=== PATIENT | male | born 1955 | race Caucasian/White ===

== ENCOUNTER 2019-10-14 20:40 | Inpatient (IN) | payer BC ==
[2019-10-14] MEDS ORDERED: DICYCLOMINE HCL 10 MG CAPSULE PO ONE (22:27)
--- NOTE | 2019-10-14 22:27 | PDOC ---
History of Present Illness - General History Source: Patient Exam Limitations: No Limitations - History of Present Illness Initial Comments: 10/14/19 22:21 HPI: 64 yo M pmh HTN, HLD, cardiac stent x1, presenting POD 2 following colonoscopy / endoscopy with diffuse sharp abdominal pain. Patient did routine night-before prep and underwent a preoperative colonoscopy and endoscopy on Tuesday10/12/2019 at 11AM, he went home and ate a meal at 2PM. He reports feeling fine until yesterday 10/13/19 at 8PM when he developed sharp pains across his abdomen. He reports initially belching and passing flatus but that was reduced when pain began. Today he tried Pepto Bismol which did not provide relief, and has been avoiding food due to the pains - denies fevers, chills, nausea, vomiting (self induced once), chest pain, shortness of breath. <Deo Carr - Last Filed: 10/14/19 23:58> <Pilar Cuellar - Last Filed: 10/15/19 02:43> - General Chief Complaint: Pain, Acute Stated Complaint: ABDOMIMAL PAIN Past History - Travel History Traveled outside of the country in the last 30 days: No Close contact w/someone who was outside of country & ill: No - Medical History Cardiac Disorders: Yes (stent) COPD: No HTN: Yes - Immunization History Immunization Up to Date: No - Psycho-Social/Smoking History Smoking History: Never smoked Have you smoked in the past 12 months: No - Substance Abuse Hx (Audit-C & DAST Scrn) How often the patient has a drink containing alcohol: Never Score: In Men: 4 or > Positive; In Women: 3 or > Positive: 0 Screen Result (Pos requires Nsg. Audit-10AR): Negative In the last yr the pt used illegal drug/Rx for NonMed reason: No Score: Yes response is considered Positive: 0 Screen Result (Positive result requires Nsg. DAST-10): Negative <Deo Carr - Last Filed: 10/14/19 23:58> <Pilar Cuellar - Last Filed: 10/15/19 02:43> - Medical History Allergies/Adverse Reactions: Allergies Allergy/AdvReac Type Severity Reaction Status Date / Time No Known Allergies Allergy Verified 05/16/19 09:24 Home Medications: Ambulatory Orders Albuterol Sulfate [Albuterol Sulfate Hfa] 8.5 gm IH PRN PRN 05/16/19 Aspirin [Aspirin EC] 81 mg PO DAILY 05/16/19 Chlorthalidone 50 mg PO DAILY 05/16/19 Fluticasone/Vilanterol [Breo Ellipta 100-25 Mcg INH] 1 each IH PRN PRN 05/16/19 Isosorbide Mononitrate [Imdur -] 30 mg PO DAILY #30 tab.sr.24h 05/16/19 Lisinopril [Zestril] 2.5 mg PO DAILY 05/16/19 Omeprazole 20 mg PO DAILY 05/16/19 Potassium Chloride [Klor-Con M10] 10 meq PO DAILY 05/16/19 Simvastatin [Zocor] 20 mg PO DAILY 05/16/19 Review of Systems - Review of Systems Able to Perform ROS?: Yes Is the patient limited Serbian proficient: Yes Constitutional: No: Chills, Fever, Weakness HEENTM: No: Recent change in vision, Hearing Loss, Throat Pain Respiratory: No: Cough, Shortness of Breath Cardiac (ROS): No: Chest Pain, Irregular Heart Rate, Lightheadedness, Palpitations, Syncope, Chest Tightness ABD/GI: No: Constipated, Diarrhea, Nausea, Vomiting : No: Burning, Dysuria, Frequency Musculoskeletal: No: Muscle Pain, Muscle Weakness, Neck Pain Integumentary: No: Bruising, Pruritus, Rash Neurological: No: Headache, Numbness, Tingling, Weakness Psychiatric: No: Stressors, Change in Appetite Endocrine: No: Increased Thirst, Increased Urine, Change in Weight Hematologic/Lymphatic: No: Anemia, Blood Clots, Easy Bleeding All Other Systems: Reviewed and Negative <Deo Carr - Last Filed: 10/14/19 23:58> *Physical Exam - Vital Signs Last Vital Signs Temp Pulse Resp BP Pulse Ox 97.8 F 74 19 175/100 H 96 10/14/19 20:54 10/14/19 20:54 10/14/19 20:54 10/14/19 20:54 10/14/19 20:54 - Physical Exam 10/14/19 22:28 Vitals reviewed, AF, hypertensive GEN: Well appearing, appears stated age, NAD, comfortable. AAOx3. HEENT: NCAT, EOMI, PERRL. Sclera anicteric, noninjected. No facial asymmetry. Moist mucous membranes. Normal voice. Trachea midline. CV: RRR, S1/S2, no murmurs / rubs / gallops appreciated. LUNG: CTABL, normal work of breathing. No wheezes, rales, rhonchi. No cough. Speaking full sentences. GI: Soft, NTND, +BS, no guarding, no rebound. No masses. EXTREMITIES: 2+ distal pulses. No clubbing / cyanosis / edema. No gross deformity in any extremity. SKIN: Warm, dry, no rashes appreciated, non-jaundiced. PSYCH: Normal mood and affect. Cooperative and appropriate. NEURO: CN grossly intact. Moving all extremities well. Normal strength and sensation grossly. <Deo Carr - Last Filed: 10/14/19 23:58> - Vital Signs Last Vital Signs Temp Pulse Resp BP Pulse Ox 97.8 F 69 20 162/84 98 10/14/19 20:54 10/15/19 00:25 10/15/19 00:25 10/15/19 00:25 10/15/19 00:25 <Pilar Cuellar - Last Filed: 10/15/19 02:43> ED Treatment Course - LABORATORY CBC & Chemistry Diagram: 10/14/19 23:27 10/14/19 23:27 <Deo Carr - Last Filed: 10/14/19 23:58> - LABORATORY CBC & Chemistry Diagram: 10/14/19 23:27 10/14/19 23:27 - ADDITIONAL ORDERS Additional order review: Laboratory Results 10/14/19 10/14/19 23:27 23:27 PT with INR 14.00 H INR 1.18 H PTT (Actin FS) 30.0 Sodium 136 Potassium 3.3 L Chloride 100 Carbon Dioxide 25 Anion Gap 11 BUN 21.9 H Creatinine 0.9 Est GFR (CKD-EPI)AfAm 104.98 Est GFR (CKD-EPI)NonAf 90.58 Random Glucose 146 H Calcium 9.0 Total Bilirubin 1.1 H AST 13 L ALT 24 Alkaline Phosphatase 78 Total Protein 8.1 Albumin 3.8 Lipase 60 L 10/14/19 23:27 RBC 5.10 MCV 87.9 MCHC 33.2 RDW 14.8 D MPV 9.5 Neutrophils % 87.7 H D Lymphocytes % 4.4 L D Monocytes % 7.5 Eosinophils % 0.0 D Basophils % 0.4 - Medications Given in the ED: ED Medications Discontinued Medications Generic Name Dose Route Start Last Admin Trade Name Sonali PRN Reason Stop Dose Admin Acetaminophen 1,000 mg 10/14/19 23:02 10/14/19 23:42 Ofirmev Injection - IVPB 10/14/19 23:03 1,000 mg ONCE ONE Administration Dicyclomine HCl 10 mg 10/14/19 22:27 10/14/19 22:54 Bentyl - PO 10/14/19 22:28 10 mg ONCE ONE Administration Fentanyl 50 mcg 10/15/19 01:14 10/15/19 01:30 Sublimaze Injection - IVPUSH 10/15/19 01:15 50 mcg ONCE ONE Administration Sodium Chloride 1,000 ml 10/14/19 23:03 10/14/19 23:43 Normal Saline - IV 10/14/19 23:04 1,000 ml ONCE ONE Administration <Pilar Cuellar - Last Filed: 10/15/19 02:43> Medical Decision Making - Medical Decision Making 10/14/19 22:30 64 yo M pmh HTN, cardiac stent x1, presenting POD 2 following preop clearance colonoscopy / endoscopy with diffuse sharp abdominal pain. History notable for 1 day fine post-procedure, then 1 day of symptoms, sharp pains moving around the abdomen, no associated symptoms. Exam notable for uncomfortable but non-tender to palpation, hypertension without fever or tachycardia. Together concerning for gas pains, low concern for perforation but will obtain abdominal plain film to r/o free air under the diaphragm, bentyl and PO challenge. Follow up with Dr. Mohr. 10/14/19 23:03 On reassessment following xray patient abdomen diffusely tender to palpation. Additional workup discussed with patient who agrees to stay for blood work and CT of his abdomen - CBC, CMP, Coags, Lipase - CTAP with contrast - 1g Ofirmev - 1 L NS 10/14/19 23:52 - Patient endorsed to overnight resident Dr. Burgos who will f/u labs, CTAP, reassess and disposition appropriately Dispo: Pending additional workup <Deo Carr - Last Filed: 10/14/19 23:58> Discharge - Discharge Information Problems reviewed: Yes <Deo Carr - Last Filed: 10/14/19 23:58> <Pilar Cuellar - Last Filed: 10/15/19 02:43> - Discharge Information Clinical Impression/Diagnosis: RUQ pain, Gallbladder dilatation Condition: Stable
[2019-10-14] MEDS ORDERED: ACETAMINOPHEN 1000 MG/100 ML VIAL (NON FORMULARY) IVPB ONE (23:02)
[2019-10-14] MEDS ORDERED: SODIUM CHLORIDE 0.9% 500 ML INFUS.BAG IV ONE (23:03)
--- NOTE | 2019-10-14 23:07 | PDOC ---
Documentation entered by Maria Guadalupe Fernandez SCRIBE, acting as scribe for Pilar Cuellar MD. Pilar Cuellar MD: This documentation has been prepared by the morroeRebecca Sydney, SCRIBE, under my direction and personally reviewed by me in its entirety. I confirm that the documentation accurately reflects all work, treatment, procedures, and medical decision making performed by me. Attending Attestation - Resident Resident Name: BrunoDeo - ED Attending Attestation I have performed the following: I have examined & evaluated the patient, The case was reviewed & discussed with the resident, I agree w/resident's findings & plan, Exceptions are as noted - HPI HPI: 10/14/19 22:43 64 yo HTN, cardiac stent s/p colonoscopy 2 days ago. was able to eat following colonoscopy, but then developed pain last night around 8 pm. took peptobismol. no relief. today has nausea, no vomiting. tried to induce vomiting to relieve his sxs. has not eaten today due to pain. not having bm. Patient endorses belching and passing gas prior to the onset of pain. no f/c no other mod factors. colonoscopy was a pre op workup for gastric bypass surgery. GI dr dhillon. Denies fever, chills, headache, shortness of breath, nausea, diarrhea, or urinary changes. Allergies: NKDA PCP: Dr. Lizandro Dubois 10/14/19 23:01 - Physicial Exam PE: 10/14/19 23:04 awake alert lungs clear bilat heart rrr no mr abd soft distended, ruq epigastric ttp. no rebound no guarding. no cva tenderness. skin warm and dry. alert oriented x 3. - Medical Decision Making 10/14/19 23:05 64 yo male s/p colonoscopy [address] dhillon, now with nausea, abd pain. ttp ruq epigastrum differential perforation, gas pain.cholelllllithiasis, cholecystitis. plan ct a/p labs zofran. ivf. 10/15/19 02:[address] with cholecystitis. labs noted elevated wb 15. given zosyn. us with sludge, distension, pt with tenderness ruq. d/w lizandro dubois for admission. will put consult in for dr mayes 10/15/19 02:58 Heart Score/ECG Review #1 General ECG Interpretation: Sinus Rhythm, Normal Rate (71), Normal Intervals, No acute ischemic changes Discharge - Discharge Information Problems reviewed: Yes Clinical Impression/Diagnosis: RUQ pain, Gallbladder dilatation, Cholecystitis Condition: Stable - Follow up/Referral - Patient Discharge Instructions - Post Discharge Activity
[2019-10-14] MEDS ORDERED: ACETAMINOPHEN INJECTION 100 ML IVPB ONE (23:30)
[2019-10-14 23:52] LABS: INR 1.18 (0.83-1.09)
[2019-10-14 23:53] LABS: BASO % 0.4 % (0-2.0); HEMATOCRIT 44.8 % (35.4-49); HEMOGLOBIN 14.9 GM/dL (11.7-16.9); LYMPH % 4.4 % (8-40); MCH 29.1 pg (25.7-33.7); MCHC 33.2 g/dl (32.0-35.9); MEAN CELL VOLUME 87.9 fl (80-96); MEAN PLT VOLUME 9.5 fl (7.5-11.1); MONO % 7.5 % (3.8-10.2); NEUT % 87.7 % (42.8-82.8); PLATELET COUNT 302 K/MM3 (134-434); RDW 14.8 % (11.9-15.9); WHITE BLOOD COUNT 15.9 K/mm3 (4.0-10.0)
--- NOTE | 2019-10-14 23:57 | PDOC ---
*Physical Exam - Vital Signs Last Vital Signs Temp Pulse Resp BP Pulse Ox 97.8 F 74 19 175/100 H 96 10/14/19 20:54 10/14/19 20:54 10/14/19 20:54 10/14/19 20:54 10/14/19 20:54 ED Treatment Course - LABORATORY CBC & Chemistry Diagram: 10/14/19 23:27 10/14/19 23:27 - ADDITIONAL ORDERS Additional order review: Laboratory Results 10/14/19 23:27 PT with INR 14.00 H INR 1.18 H PTT (Actin FS) 30.0 - RADIOLOGY Radiology Studies Ordered: Category Date Time Status ABDOMEN FLAT & UPRIGHT [RAD] Stat Radiology 10/14/19 22:14 Taken Radiograph Interpretation: CTAP: THIS IS A PRELIMINARY REPORT DATE OF SERVICE: 2019-10-15 00:26:48 IMAGES: [id number] EXAM: ABDOMEN \T\ PELVIS CT WITH CONTR HISTORY: Diffuse abdominal pain COMPARISON: None. FINDINGS: Lung bases are clear. The visualized cardiac chambers are normal size and configuration. Gallbladder distention with pericholecystic edema likely represents acute cholecystitis. No biliary duct dilation. Normal liver, pancreas, spleen, adrenal glands and kidneys. The stomach and abdominal small and large bowel are normal. There is no aortic aneurysm. There is no significant retroperitoneal lymphadenopathy. The pelvic small and large bowel are normal. There is no evidence of appendicitis, although the appendix is not clearly visualized. The urinary bladder and prostate gland are normal. No pelvic free fluid is identified. There is no significant pelvic lymphadenopathy. Small fat-containing bilateral IMPRESSION: Probable acute cholecystitis, which can be confirmed with ultrasound as clinically indicated. One or more of the following dose reduction techniques were used: automated exposure control, adjustment of the mA and/or kV according to patient size, use of iterative reconstructive technique. THIS DOCUMENT HAS BEEN ELECTRONICALLY SIGNED Jerad Velarde MD 10/15/2019 00:58 EST RUQ U/S: THIS IS A PRELIMINARY REPORT DATE OF SERVICE: 2019-10-15 01:28:32 IMAGES: [id number] EXAM: ABDOMEN US -LIMITED , right upper quadrant HISTORY: Rule out cholecystitis COMPARISON: None. FINDINGS: The liver is at, without mass or biliary duct dilation. The gallbladder is distended and contains sludge without secondary findings of cholecystitis. The CBD is mildly dilated and measures8 millimeters in diameter. Right kidney measures 10.1centimeters in length and is unremarkable. The visualized aorta and IVC are normal. Pancreas is obscured. IMPRESSION: Fatty liver. Gallbladder sludge without secondary signs of cholecystitis THIS DOCUMENT HAS BEEN ELECTRONICALLY SIGNED Jerad Velarde MD 10/15/2019 02:09 EST - Medications Given in the ED: ED Medications Discontinued Medications Generic Name Dose Route Start Last Admin Trade Name Sonali PRN Reason Stop Dose Admin Acetaminophen 1,000 mg 10/14/19 23:02 10/14/19 23:42 Ofirmev Injection - IVPB 10/14/19 23:03 1,000 mg ONCE ONE Administration Dicyclomine HCl 10 mg 10/14/19 22:27 10/14/19 22:54 Bentyl - PO 10/14/19 22:28 10 mg ONCE ONE Administration Sodium Chloride 1,000 ml 10/14/19 23:03 10/14/19 23:43 Normal Saline - IV 10/14/19 23:04 1,000 ml ONCE ONE Administration Medical Decision Making - Medical Decision Making Received sign out from resident Dr. Carr. In short, pt is a 64 y/o male presenting with diffuse abdominal discomfort, belching, and flatus two days s/p colonoscopy. Plain films of the abdomen are unremarkable for free air per ED Wet read. Will f/u pending labs and CTAP. CTAP revealed gallbladder distention with pericholecystic edema likely representing acute cholecystitis. Will further evaluate with RUQ U/S. RUQ U/S revealed gallbladder distention and contained sludge without secondary findings of cholecystitis. Ordered Zosyn for abx coverage given pain, pericholecystic fluid, and leukocytosis with left shift. Will place the pt on observation for further abdominal exam and likely general surgery evaluation. 15 Oct 2019 02:30 AM Telephone discussion with Dr. Lizandro Dubois, admitting attending. Verbally appraised of the pts HPI, ED course, and current plan of management. Requested Dr. Jaleel Narvaez consult for general surgery; request placed in [facility]. Accepted pt to his service on med/surg. Discussed plan for observation and further evaluation in the morning. Pt expressed verbal understanding and agreement with plan. All questions answered. Damian Burgos M.D., PGY3 Emergency Medicine Resident Discharge - Discharge Information Problems reviewed: Yes Clinical Impression/Diagnosis: RUQ pain, Gallbladder dilatation Condition: Stable - Admission Yes - Follow up/Referral - Patient Discharge Instructions - Post Discharge Activity
[2019-10-15 00:05] LABS: ALBUMIN 3.8 g/dl (3.4-5.0); BILIRUBIN,TOTAL 1.1 mg/dL (0.2-1); BLOOD UREA NITROGEN 21.9 mg/dL (7-18); CREATININE 0.9 mg/dL (0.55-1.3); POTASSIUM 3.3 mmol/L (3.5-5.1); TOT PROT 8.1 g/dl (6.4-8.2)
[2019-10-15] MEDS ORDERED: PIPERACILLIN/TAZOB 3.375 GM 3.375 GM in DEXTROSE 5%-WATER - 50 ML IVPB ONE (02:36)
[2019-10-15] MEDS ORDERED: PIPERACILLIN/TAZOB 3.375 GM 3.375 GM/50 ML BAG IVPB ONE (02:48)
[2019-10-15 04:27] VITALS: BMI 36.6
[2019-10-15] MEDS ORDERED: PIPERACILLIN/TAZOB 3.375 GM 3.375 GM in DEXTROSE 5%-WATER - 50 ML IVPB SCH ×2 (07:30→10:15)
[2019-10-15 08:28] LABS: BASO % 0.4 % (0-2.0); HEMATOCRIT 40.3 % (35.4-49); HEMOGLOBIN 13.3 GM/dL (11.7-16.9); LYMPH % 3.8 % (8-40); MCH 28.7 pg (25.7-33.7); MEAN CELL VOLUME 86.9 fl (80-96); MEAN PLT VOLUME 9.2 fl (7.5-11.1); MONO % 8.2 % (3.8-10.2); NEUT % 87.6 % (42.8-82.8); PLATELET COUNT 254 K/MM3 (134-434); RBC 4.64 M/mm3 (4.00-5.60); RDW 14.8 % (11.9-15.9)
[2019-10-15] MEDS ORDERED: POTASSIUM CHLORIDE ORAL LIQUID 20 MEQ/15 ML PO ONE (08:30)
--- NOTE | 2019-10-15 08:32 | SPA.PREOP ---
- PRE-OP NOTE Per Dr. Paredes, a formal surgical consult to be written by him. Dx: Acute Cholecystitis Planned Procedure: Laprascopic Cholecystectomy, possible open Surgeon: Isiah Paredes Last Vital Signs Temp Pulse Resp BP Pulse Ox 98.5 F 70 18 161/80 93 L 10/15/19 06:27 10/15/19 06:27 10/15/19 06:27 10/15/19 06:27 10/15/19 06:27 Hepatic Panel Total Bilirubin 1.1 mg/dL (0.2-1) H 10/14/19 23:27 AST 13 U/L (15-37) L 10/14/19 23:27 ALT 24 U/L (13-61) 10/14/19 23:27 Alkaline Phosphatase 78 U/L (45-117) 10/14/19 23:27 Albumin 3.8 g/dl (3.4-5.0) 10/14/19 23:27 INR, PTT INR 1.18 (0.83-1.09) H 10/14/19 23:27 CBC / BMP 10/14/19 10/14/19 23:27 23:27 WBC 15.9 H Hgb 14.9 Hct 44.8 Plt Count 302 Sodium 136 Potassium 3.3 L Chloride 100 Carbon Dioxide 25 BUN 21.9 H Creatinine 0.9 Random Glucose 146 H Serology Test 10/15/19 03:40 COVID-19 ([facility]IR[facility]) Pending - ASSESSMENT/PLAN 1. NPO except po meds 2. GI/DVT PPX 3. Medical optimization / clearance 4. Cardiology Consult pending 5. Covid pending; strict isolation precaution 6. Consent to be obtained by surgeon after risks, benefits and alternatives discussed with patient and or Health Care Proxy. Problem List - Problems (1) Cholecystitis Code(s): K81.9 - CHOLECYSTITIS, UNSPECIFIED (2) History of coronary artery stent placement Code(s): Z95.5 - PRESENCE OF CORONARY ANGIOPLASTY IMPLANT AND GRAFT (3) Morbid obesity Code(s): E66.01 - MORBID (SEVERE) OBESITY DUE TO EXCESS CALORIES Visit type - Case Type Case Type: ED Admission - Emergency Emergency Visit: Yes ED Registration Date: 10/15/19 Care time: The patient presented to the Emergency Department on the above date and was hospitalized for further evaluation of their emergent condition. - New patient This patient is new to me today: Yes Date on this admission: 10/15/19
[2019-10-15 08:59] LABS: ALBUMIN 3.4 g/dl (3.4-5.0); BILIRUBIN,TOTAL 1.4 mg/dL (0.2-1); BLOOD UREA NITROGEN 16.4 mg/dL (7-18); CALCIUM 8.8 mg/dL (8.5-10.1); CREATININE 0.8 mg/dL (0.55-1.3); POTASSIUM 3.1 mmol/L (3.5-5.1)
[2019-10-15] MEDS ORDERED: MORPHINE SULFATE 2 MG/ML VIAL IVPUSH ONE (09:30)
[2019-10-15] MEDS: LISINOPRIL 5 MG TABLET (FP) PO SCH (09:45)
[2019-10-15] MEDS: POTASSIUM CHLORIDE TABS 10 MEQ TABLET.ER (FP) PO SCH (09:45)
[2019-10-15] MEDS: SODIUM CHLORIDE 1,000 ML IV SCH (09:46)
[2019-10-15] MEDS: CHLORTHALIDONE 50 MG TABLET PO SCH ×2 (09:46→09:48)
[2019-10-15] MEDS: PANTOPRAZOLE SODIUM 40 MG VIAL IVPUSH SCH (09:47)
[2019-10-15] MEDS: KCL 10 MEQ IVPB 10 MEQ/100 ML INFUS.BAG IVPB SCH ×2 (09:47→12:53)
--- NOTE | 2019-10-15 09:49 | HP ---
Admitting History and Physical - Admission Chief Complaint: pt had egd found gastritis and colonoscopy w 1 benign polyp. pt had 1 stent 2014 card cath pnd so he couid do barietric sx. came ruq pain scal 10 started fiday and got wosrt came to er dx cholycystotis w slude onlt ? no stones. denied all other coplaint just bloated also History Source: Patient Limitations to Obtaining History: No Limitations - Past Medical History Cardiovascular: Yes: HTN, Hyperlipdemia, Other (1 stent) Gastrointestinal: Yes: Other (sx a/p in past) Hepatobiliary: Yes: Cholecystitis - Past Surgical History Past Surgical History: Yes: Appendectomy, Colonoscopy, Upper Endoscopy - Smoking History Smoking history: Former smoker Have you smoked in the past 12 months: No If you are a former smoker, when did you quit?: 19 years ago - Alcohol/Substance Use Hx Alcohol Use: No History of Substance Use: reports: None - Social History Usual Living Arrangement: Yes: Alone History of Recent Travel: No Home Medications - Allergies Allergies/Adverse Reactions: Allergies Allergy/AdvReac Type Severity Reaction Status Date / Time No Known Allergies Allergy Verified 05/16/19 09:24 - Home Medications Home Medications: Ambulatory Orders Aspirin [Aspirin EC] 81 mg PO DAILY 05/16/19 Chlorthalidone 50 mg PO DAILY 05/16/19 Lisinopril [Zestril] 2.5 mg PO DAILY 05/16/19 Omeprazole 20 mg PO DAILY 05/16/19 Potassium Chloride [Klor-Con M10] 10 meq PO DAILY 05/16/19 Simvastatin [Zocor] 20 mg PO DAILY 05/16/19 Family Medical History Family History: Unremarkable Review of Systems - Review of Systems Constitutional: reports: Other (ruq pain scale 10) Eyes: reports: No Symptoms HENT: reports: No Symptoms Neck: reports: No Symptoms Cardiovascular: reports: No Symptoms Respiratory: reports: No Symptoms Gastrointestinal: reports: Abdominal Pain, Bloating Genitourinary: reports: No Symptoms Breasts: reports: No Symptoms Reported Musculoskeletal: reports: No Symptoms Integumentary: reports: No Symptoms Neurological: reports: No Symptoms Endocrine: reports: No Symptoms Hematology/Lymphatic: reports: No Symptoms Psychiatric: reports: No Symptoms Physical Examination Vital Signs: Vital Signs Temperature 98.5 F 10/15/19 06:27 Pulse Rate 70 10/15/19 06:27 Respiratory Rate 18 10/15/19 06:27 Blood Pressure 161/80 10/15/19 06:27 O2 Sat by Pulse Oximetry (%) 93 L 10/15/19 06:27 Constitutional: Yes: Anxious Eyes: Yes: WNL HENT: Yes: WNL Neck: Yes: WNL Cardiovascular: Yes: WNL Respiratory: Yes: WNL Gastrointestinal: Yes: Hypoactive Bowel Sounds, Tenderness, Rebound ...Rectal Exam: Yes: Deferred Renal/: Yes: WNL Breast(s): Yes: WNL Musculoskeletal: Yes: WNL Extremities: Yes: WNL Edema: No Peripheral Pulses WNL: No Integumentary: Yes: WNL Neurological: Yes: WNL ...Motor Strength: WNL Psychiatric: Yes: WNL Labs: CBC, BMP 10/15/19 08:05 10/15/19 08:05 Assessment/Plan npo except meds sx consulted id consulted zosyn iv cont all meds as is at home eplace kcl card consult h/o stent 2014 card cath pnd for future bariectric sx only morfine for pain
[2019-10-15] MEDS ORDERED: MORPHINE SULFATE 2 MG/ML VIAL IVPUSH PRN (09:52)
[2019-10-15] MEDS ORDERED: CHLORTHALIDONE 50 MG TABLET PO SCH (10:00)
--- NOTE | 2019-10-15 10:18 | CON.CARD ---
Consult Consult Specialty:: Cardiology Referred by:: Vince Reason for Consultation:: Preop cardiovascular evaluation - History of Present Illness Chief Complaint: Abdominal discomfort History of Present Illness: The patient is a 64-year-old man, former smoker, history of hypertension, hyperlipidemia, coronary artery disease, status post stent in 2013, now presenting with abdominal pain and nausea. Found to have acute cholecystitis. Surgery is being planned. At baseline the patient reports good exercise tolerance. Claims that he has been able to walk up to 4 miles without any important limitations nor symptoms. Also denied paroxysmal nocturnal dyspnea and orthopnea. The patient is currently comfortable and symptom-free. Denied chest pains or shortness of breath. No palpitations. Complaining of right upper quadrant abdominal discomfort and bloating. - History Source History Provided By: Patient Limitations to Obtaining History: No Limitations - Past Medical History Cardio/Vascular: Yes: CAD, HTN, Hyperlipdemia, Other (1 stent) Gastrointestinal: Yes: Other (sx a/p in past) Hepatobiliary: Yes: Cholecystitis - Past Surgical History Past Surgical History: Yes: Appendectomy, Colonoscopy, Upper Endoscopy - Alcohol/Substance Use Hx Alcohol Use: No History of Substance Use: reports: None - Smoking History Smoking history: Former smoker Have you smoked in the past 12 months: No If you are a former smoker, when did you quit?: 19 years ago - Social History History of Recent Travel: No Home Medications - Allergies Allergies/Adverse Reactions: Allergies Allergy/AdvReac Type Severity Reaction Status Date / Time No Known Allergies Allergy Verified 05/16/19 09:24 - Home Medications Home Medications: Ambulatory Orders Aspirin [Aspirin EC] 81 mg PO DAILY 05/16/19 Chlorthalidone 50 mg PO DAILY 05/16/19 Lisinopril [Zestril] 2.5 mg PO DAILY 05/16/19 Omeprazole 20 mg PO DAILY 05/16/19 Potassium Chloride [Klor-Con M10] 10 meq PO DAILY 05/16/19 Simvastatin [Zocor] 20 mg PO DAILY 05/16/19 Family Medical History Family History: Unremarkable Review of Systems - Review of Systems Constitutional: reports: Loss of Appetite Eyes: reports: No Symptoms HENT: reports: No Symptoms Neck: reports: No Symptoms Cardiovascular: reports: No Symptoms Respiratory: reports: No Symptoms Gastrointestinal: reports: Abdominal Pain, Bloating Genitourinary: reports: No Symptoms Breasts: reports: No Symptoms Reported Musculoskeletal: reports: No Symptoms Integumentary: reports: No Symptoms Neurological: reports: No Symptoms Endocrine: reports: No Symptoms Hematology/Lymphatic: reports: No Symptoms Psychiatric: reports: No Symptoms Vital Signs: Vital Signs Temperature 98.5 F 10/15/19 06:27 Pulse Rate 70 10/15/19 06:27 Respiratory Rate 18 10/15/19 06:27 Blood Pressure 161/80 10/15/19 06:27 O2 Sat by Pulse Oximetry (%) 93 L 10/15/19 06:27 Constitutional: Yes: Well Nourished, No Distress, Calm Eyes: Yes: WNL, Conjunctiva Clear, EOM Intact HENT: Yes: WNL, Atraumatic, Normocephalic Neck: Yes: WNL, Supple, Trachea Midline Respiratory: Yes: WNL, Regular, CTA Bilaterally Gastrointestinal: Yes: Soft, Abdomen, Obese, Hypoactive Bowel Sounds, Tenderness, Tenderness, Epigastrium Renal/: Yes: WNL Cardiovascular: Yes: WNL, Regular Rate and Rhythm JVD: No Carotid Bruit: No PMI: Non-Displaced Heart Sounds: Yes: S1, S2 Murmur: Yes: Systolic Murmur, Grade 2 Musculoskeletal: Yes: WNL Extremities: Yes: WNL Edema: No Peripheral Pulses WNL: Yes Integumentary: Yes: WNL Neurological: Yes: WNL, Alert, Oriented ...Motor Strength: WNL Psychiatric: Yes: WNL, Alert, Oriented - Other Data Labs, Other Data: CBC, BMP 10/15/19 08:05 10/15/19 08:05 INR, PTT INR 1.18 (0.83-1.09) H 10/14/19 23:27 Assessment/Plan The patient is a 64-year-old man, former smoker, history of hypertension, hyperlipidemia, coronary artery disease, status post stent in 2013, now presenting with abdominal pain and nausea. Found to have acute cholecystitis. Surgery is being planned. At baseline the patient reports good exercise tolerance. Claims that he has been able to walk up to 4 miles without any important limitations nor symptoms. Also denied paroxysmal nocturnal dyspnea and orthopnea. The patient is currently comfortable and symptom-free. Denied chest pains or shortness of breath. No palpitations. Complaining of right upper quadrant abdominal discomfort and bloating. ECG; normal sinus rhythm, normal axis, normal intervals, nonspecific ST-T changes. There is no evidence of ischemia nor acute coronary syndrome. No CHF. No acute ECG changes. There is no need for further cardiac work-up at this point. The patient is medically optimized for cholecystectomy. Please make sure that the patient receives his blood pressure medications in the morning of the surgery and as prescribed perioperatively. Try to keep hemoglobin around 10.0 as possible. Please achieve good pain control perioperatively. Please proceed with surgery as planned. Please arrange for an outpatient follow-up visit with within 10 days of discharge. Do not hesitate to call us PRN.
--- NOTE | 2019-10-15 10:22 | CON.ID ---
Consult Consult Specialty:: infectious diseases Referred by:: dr.Martin Rossi Reason for Consultation:: abd pain,ac choley - History of Present Illness Chief Complaint: abd pain History of Present Illness: 64 yo M pmh HTN, HLD, cardiac stent x1, presenting POD 2 following colonoscopy / endoscopy with diffuse sharp abdominal pain. Patient did routine night-before prep and underwent a preoperative colonoscopy and endoscopy on Tuesday10/12/2019 at 11AM, he went home and ate a meal at 2PM. He reports feeling fine until yesterday 10/13/19 at 8PM when he developed sharp pains across his abdomen. He reports initially belching and passing flatus but that was reduced when pain began. Today he tried Pepto Bismol which did not provide relief, and has been avoiding food due to the pains - denies fevers, chills, nausea, vomiting (self i nduced once), chest pain, shortness of breath. patient worked up and found to have dilation of the cbd with sludge in gall bladder - History Source History Provided By: Patient Limitations to Obtaining History: No Limitations - Past Medical History Cardio/Vascular: Yes: CAD, HTN, Hyperlipdemia, Other (1 stent) Gastrointestinal: Yes: Other (sx a/p in past) Hepatobiliary: Yes: Cholecystitis - Past Surgical History Past Surgical History: Yes: Appendectomy, Colonoscopy, Upper Endoscopy - Alcohol/Substance Use Hx Alcohol Use: No History of Substance Use: reports: None - Smoking History Smoking history: Former smoker Have you smoked in the past 12 months: No If you are a former smoker, when did you quit?: 19 years ago - Social History History of Recent Travel: No Home Medications - Allergies Allergies/Adverse Reactions: Allergies Allergy/AdvReac Type Severity Reaction Status Date / Time No Known Allergies Allergy Verified 05/16/19 09:24 - Home Medications Home Medications: Ambulatory Orders Aspirin [Aspirin EC] 81 mg PO DAILY 05/16/19 Chlorthalidone 50 mg PO DAILY 05/16/19 Lisinopril [Zestril] 2.5 mg PO DAILY 05/16/19 Omeprazole 20 mg PO DAILY 05/16/19 Potassium Chloride [Klor-Con M10] 10 meq PO DAILY 05/16/19 Simvastatin [Zocor] 20 mg PO DAILY 05/16/19 Family Medical History Family History: Unremarkable Review of Systems - Review of Systems Constitutional: reports: No Symptoms Eyes: reports: No Symptoms HENT: reports: No Symptoms Neck: reports: No Symptoms Cardiovascular: reports: No Symptoms Respiratory: reports: No Symptoms Gastrointestinal: reports: Abdominal Pain, Other Genitourinary: reports: No Symptoms Musculoskeletal: reports: No Symptoms Integumentary: reports: No Symptoms Neurological: reports: No Symptoms Endocrine: reports: No Symptoms Hematology/Lymphatic: reports: No Symptoms Psychiatric: reports: No Symptoms Physical Exam Vital Signs: Vital Signs Temperature 98.5 F 10/15/19 06:27 Pulse Rate 70 10/15/19 06:27 Respiratory Rate 18 10/15/19 06:27 Blood Pressure 161/80 10/15/19 06:27 O2 Sat by Pulse Oximetry (%) 93 L 10/15/19 06:27 Constitutional: Yes: Well Nourished, Calm, Mild Distress Eyes: Yes: Conjunctiva Clear HENT: Yes: Atraumatic, Normocephalic Neck: Yes: Supple, Trachea Midline Cardiovascular: Yes: Regular Rate and Rhythm Respiratory: Yes: Regular, CTA Bilaterally Gastrointestinal: Yes: Soft, Distention, Tenderness (ruq) Musculoskeletal: Yes: WNL Extremities: Yes: WNL Neurological: Yes: Alert, Oriented Psychiatric: Yes: Alert, Oriented Labs: CBC, BMP 10/15/19 08:05 10/15/19 08:05 Imaging - Results Cat Scan: Image Reviewed Ultrasound: Report Reviewed Assessment/Plan Problem List - Problems (1) Cholecystitis Code(s): K81.9 - CHOLECYSTITIS, UNSPECIFIED (2) History of coronary artery stent placement Code(s): Z95.5 - PRESENCE OF CORONARY ANGIOPLASTY IMPLANT AND GRAFT (3) Morbid obesity Code(s): E66.01 - MORBID (SEVERE) OBESITY DUE TO EXCESS CALORIES cbd dilation plan will continue zosyn surgery on case close watch monitor wbc rest as per the team await for official read on ct
[2019-10-15] MEDS ORDERED: CHLORTHALIDONE 25 MG TABLET PO SCH (11:05)
--- NOTE | 2019-10-15 11:16 | EKG ---
Test Reason : Blood Pressure : / mmHG Vent. Rate : 075 BPM Atrial Rate : 075 BPM P-R Int : 170 ms QRS Dur : 100 ms QT Int : 420 ms P-R-T Axes : 059 -15 026 degrees QTc Int : 469 ms NORMAL SINUS RHYTHM CANNOT RULE OUT ANTERIOR INFARCT , AGE UNDETERMINED ABNORMAL ECG WHEN COMPARED WITH ECG OF 16-MAY-2019 15:45, NO SIGNIFICANT CHANGE WAS FOUND Confirmed by RAMON JENNINGS MD ([id number]) on 10/15/2019 11:16:13 AM Referred By: Confirmed By:RAMON JENNINGS MD
--- NOTE | 2019-10-15 11:16 | EKG ---
Test Reason : Blood Pressure : / mmHG Vent. Rate : 071 BPM Atrial Rate : 071 BPM P-R Int : 182 ms QRS Dur : 092 ms QT Int : 436 ms P-R-T Axes : 057 -22 013 degrees QTc Int : 473 ms NORMAL SINUS RHYTHM WITH SINUS ARRHYTHMIA NORMAL ECG WHEN COMPARED WITH ECG OF 14-OCT-2019 20:52, NO SIGNIFICANT CHANGE WAS FOUND Confirmed by RAMON JENNINGS MD ([id number]) on 10/15/2019 11:15:52 AM Referred By: Confirmed By:RAMON JENNINGS MD
[2019-10-15] MEDS ORDERED: DEXTROSE 5%-WATER 100 ML IVPB ONE ×2 (11:21→16:25)
[2019-10-15] MEDS ORDERED: PIPERACILLIN/TAZOBACTAM 4.5 GM VIAL IVPB ONE ×2 (11:21→16:25)
[2019-10-15] MEDS: PIPERACILLIN/TAZOB 4.5 GM 4.5 GM in DEXTROSE 5%-WATER 100 ML IVPB SCH ×2 (11:34→17:16)
[2019-10-15] MEDS: MORPHINE SULFATE 2 MG/ML VIAL IVPUSH PRN ×2 (16:46→20:58)
[2019-10-15] MEDS ORDERED: ROSUVASTATIN CA 20 MG TABLET (FP) PO SCH (22:00)
[2019-10-16] MEDS ORDERED: DEXTROSE 5%-WATER 100 ML IVPB ONE ×3 (00:40→16:34)
[2019-10-16] MEDS ORDERED: PIPERACILLIN/TAZOBACTAM 4.5 GM VIAL IVPB ONE ×3 (00:40→16:34)
[2019-10-16] MEDS: MORPHINE SULFATE 2 MG/ML VIAL IVPUSH PRN (00:48)
[2019-10-16] MEDS ORDERED: morphine SULFATE 4 MG/ML VIAL IVPUSH PRN (01:04)
[2019-10-16] MEDS: PIPERACILLIN/TAZOB 4.5 GM 4.5 GM in DEXTROSE 5%-WATER 100 ML IVPB SCH ×3 (01:41→17:44)
[2019-10-16 07:35] LABS: BASO % 0.2 % (0-2.0); HEMATOCRIT 40.1 % (35.4-49); HEMOGLOBIN 13.4 GM/dL (11.7-16.9); LYMPH % 2.3 % (8-40); MCH 29.5 pg (25.7-33.7); MCHC 33.5 g/dl (32.0-35.9); MEAN CELL VOLUME 88.1 fl (80-96); MEAN PLT VOLUME 9.2 fl (7.5-11.1); MONO % 6.5 % (3.8-10.2); PLATELET COUNT 237 K/MM3 (134-434); RBC 4.55 M/mm3 (4.00-5.60); RDW 14.8 % (11.9-15.9); WHITE BLOOD COUNT 25.8 K/mm3 (4.0-10.0)
[2019-10-16 07:56] LABS: ALBUMIN 2.9 g/dl (3.4-5.0); BILIRUBIN,TOTAL 1.8 mg/dL (0.2-1); BLOOD UREA NITROGEN 13.5 mg/dL (7-18); CALCIUM 8.6 mg/dL (8.5-10.1); CREATININE 0.8 mg/dL (0.55-1.3); TOT PROT 6.5 g/dl (6.4-8.2)
[2019-10-16 08:20] LABS: POTASSIUM 2.9 mmol/L (3.5-5.1)
--- NOTE | 2019-10-16 08:41 | PN ---
Progress Note, Physician - Current Medication List Current Medications: Active Medications Sodium Chloride (Normal Saline -) 1,000 mls @ 42 mls/hr IV ASDIR [facility] Last Admin: 10/15/19 09:46 Dose: 42 mls/hr Documented by: Piperacillin Sod/Tazobactam (Sod 4.5 gm/ Dextrose) 100 mls @ 200 mls/hr IVPB Q8H-IV MALIK; Protocol Last Admin: 10/16/19 01:41 Dose: 200 mls/hr Documented by: Potassium Chloride (Potassium Chloride 10 Meq Premix Ivpb -) 10 meq in 100 mls @ 100 mls/hr IVPB Q60M [facility] Stop: 10/16/19 10:44 Lisinopril (Prinivil) 2.5 mg PO DAILY [facility] Last Admin: 10/15/19 09:45 Dose: 2.5 mg Documented by: Morphine Sulfate (Morphine Sulfate) 3 mg IVPUSH Q4H PRN PRN Reason: PAIN LEVEL 6-10 Pantoprazole Sodium (Protonix Iv) 40 mg IVPUSH DAILY [facility] Last Admin: 10/15/19 09:47 Dose: 40 mg Documented by: Potassium Chloride (K-Dur -) 10 meq PO DAILY [facility] Last Admin: 10/15/19 09:45 Dose: 10 meq Documented by: Rosuvastatin Calcium (Crestor -) [address] [facility] Last Admin: 10/15/19 21:00 Dose: 20 mg Documented by: - Objective Vital Signs: Vital Signs Temperature 98.7 F 10/16/19 06:33 Pulse Rate 95 H 10/16/19 06:33 Respiratory Rate 17 10/16/19 06:33 Blood Pressure 122/65 10/16/19 06:33 O2 Sat by Pulse Oximetry (%) 93 L 10/16/19 06:33 Labs: CBC, BMP 10/16/19 06:40 INR, PTT INR 1.18 (0.83-1.09) H 10/14/19 23:27 Assessment/Plan potasium level 2,9 plan d/c diuretic 2 bags 10 meq x 2 stat prior to sx repeat k [place] [address] today watch kcl level did not d/c po kcl yet ekgb stat prior to sx will wastch bp and tx accordinly
[2019-10-16] MEDS: KCL 10 MEQ IVPB 10 MEQ/100 ML INFUS.BAG IVPB SCH ×2 (09:00→10:10)
[2019-10-16] MEDS: LISINOPRIL 5 MG TABLET (FP) PO SCH (09:06)
[2019-10-16] MEDS: POTASSIUM CHLORIDE TABS 10 MEQ TABLET.ER (FP) PO SCH (09:07)
[2019-10-16] MEDS: SODIUM CHLORIDE 1,000 ML IV SCH (09:07)
[2019-10-16] MEDS: PANTOPRAZOLE SODIUM 40 MG VIAL IVPUSH SCH (09:08)
--- NOTE | 2019-10-16 11:04 | PN ---
Progress Note, Physician Chief Complaint: ruq pain n/c vss bp higher due to pain? - Current Medication List Current Medications: Active Medications Sodium Chloride (Normal Saline -) 1,000 mls @ 42 mls/hr IV ASDIR [facility] Last Admin: 10/16/19 09:07 Dose: Not Given Documented by: Piperacillin Sod/Tazobactam (Sod 4.5 gm/ Dextrose) 100 mls @ 200 mls/hr IVPB Q8H-IV MALIK; Protocol Last Admin: 10/16/19 01:41 Dose: 200 mls/hr Documented by: Lisinopril (Prinivil) 2.5 mg PO DAILY [facility] Last Admin: 10/16/19 09:06 Dose: 2.5 mg Documented by: Morphine Sulfate (Morphine Sulfate) 3 mg IVPUSH Q4H PRN PRN Reason: PAIN LEVEL 6-10 Pantoprazole Sodium (Protonix Iv) 40 mg IVPUSH DAILY [facility] Last Admin: 10/16/19 09:08 Dose: 40 mg Documented by: Potassium Chloride (K-Dur -) 10 meq PO DAILY [facility] Last Admin: 10/16/19 09:07 Dose: 10 meq Documented by: Rosuvastatin Calcium (Crestor -) 20 mg PO HS [facility] Last Admin: 10/15/19 21:00 Dose: 20 mg Documented by: - Objective Vital Signs: Vital Signs Temperature 98.7 F 10/16/19 08:42 Pulse Rate 92 H 10/16/19 08:42 Respiratory Rate 18 10/16/19 09:00 Blood Pressure 140/90 10/16/19 08:42 O2 Sat by Pulse Oximetry (%) 92 L 10/16/19 09:00 Constitutional: Yes: Anxious Eyes: Yes: WNL HENT: Yes: WNL Neck: Yes: WNL Cardiovascular: Yes: WNL Respiratory: Yes: WNL Gastrointestinal: Yes: Tenderness, Rebound ...Rectal Exam: Yes: Deferred Genitourinary: Yes: WNL Breast(s): Yes: WNL Musculoskeletal: Yes: WNL Extremities: Yes: WNL Edema: No Peripheral Pulses WNL: Yes Integumentary: Yes: WNL Neurological: Yes: WNL ...Motor Strength: WNL Psychiatric: Yes: WNL Labs: CBC, BMP 10/16/19 06:40 10/16/19 06:40 INR, PTT INR 1.18 (0.83-1.09) H 10/14/19 23:27 Assessment/Plan needs sx lisa today watch bp diuretics stoped kcl to be chk today post tx w kcl
[2019-10-16 11:23] LABS: ANISOCYTOSIS 0; MACROCYTOSIS 0; PLATELET ESTIMATE NORMAL
--- NOTE | 2019-10-16 11:37 | PN ---
Progress Note, Physician - Current Medication List Current Medications: Active Medications Sodium Chloride (Normal Saline -) 1,000 mls @ 42 mls/hr IV ASDIR [facility] Last Admin: 10/16/19 09:07 Dose: Not Given Documented by: Piperacillin Sod/Tazobactam (Sod 4.5 gm/ Dextrose) 100 mls @ 200 mls/hr IVPB Q8H-IV MALIK; Protocol Last Admin: 10/16/19 11:06 Dose: 200 mls/hr Documented by: Lisinopril (Prinivil) 2.5 mg PO DAILY [facility] Last Admin: 10/16/19 09:06 Dose: 2.5 mg Documented by: Morphine Sulfate (Morphine Sulfate) 3 mg IVPUSH Q4H PRN PRN Reason: PAIN LEVEL 6-10 Pantoprazole Sodium (Protonix Iv) 40 mg IVPUSH DAILY [facility] Last Admin: 10/16/19 09:08 Dose: 40 mg Documented by: Potassium Chloride (K-Dur -) 10 meq PO DAILY [facility] Last Admin: 10/16/19 09:07 Dose: 10 meq Documented by: Rosuvastatin Calcium (Crestor -) 20 mg PO HS [facility] Last Admin: 10/15/19 21:00 Dose: 20 mg Documented by: - Objective Vital Signs: Vital Signs Temperature 98.7 F 10/16/19 08:42 Pulse Rate 92 H 10/16/19 08:42 Respiratory Rate 18 10/16/19 09:00 Blood Pressure 140/90 10/16/19 08:42 O2 Sat by Pulse Oximetry (%) 92 L 10/16/19 09:00 Labs: CBC, BMP 10/16/19 06:40 10/16/19 06:40 INR, PTT INR 1.18 (0.83-1.09) H 10/14/19 23:27 Assessment/Plan if sx delayed past 100 pm needle in gallbladder to decompress to prevent perforation dr isidro
--- NOTE | 2019-10-16 11:49 | PN ---
Progress Note, Physician History of Present Illness: abd pain better further plan awaited wbc has increased - Current Medication List Current Medications: Active Medications Sodium Chloride (Normal Saline -) 1,000 mls @ 42 mls/hr IV ASDIR [facility] Last Admin: 10/16/19 09:07 Dose: Not Given Documented by: Piperacillin Sod/Tazobactam (Sod 4.5 gm/ Dextrose) 100 mls @ 200 mls/hr IVPB Q8H-IV MALIK; Protocol Last Admin: 10/16/19 11:06 Dose: 200 mls/hr Documented by: Lisinopril (Prinivil) 2.5 mg PO DAILY [facility] Last Admin: 10/16/19 09:06 Dose: 2.5 mg Documented by: Morphine Sulfate (Morphine Sulfate) 3 mg IVPUSH Q4H PRN PRN Reason: PAIN LEVEL 6-10 Pantoprazole Sodium (Protonix Iv) 40 mg IVPUSH DAILY [facility] Last Admin: 10/16/19 09:08 Dose: 40 mg Documented by: Potassium Chloride (K-Dur -) 10 meq PO DAILY [facility] Last Admin: 10/16/19 09:07 Dose: 10 meq Documented by: Rosuvastatin Calcium (Crestor -) 20 mg PO HS [facility] Last Admin: 10/15/19 21:00 Dose: 20 mg Documented by: - Objective Vital Signs: Vital Signs Temperature 98.7 F 10/16/19 08:42 Pulse Rate 92 H 10/16/19 08:42 Respiratory Rate 18 10/16/19 09:00 Blood Pressure 140/90 10/16/19 08:42 O2 Sat by Pulse Oximetry (%) 92 L 10/16/19 09:00 Constitutional: Yes: Calm, Mild Distress Cardiovascular: Yes: S1, S2 Respiratory: Yes: Regular, CTA Bilaterally Gastrointestinal: Yes: Soft, Other Musculoskeletal: Yes: WNL Extremities: Yes: WNL Neurological: Yes: Alert, Oriented Psychiatric: Yes: Alert, Oriented Labs: CBC, BMP 10/16/19 06:40 10/16/19 06:40 INR, PTT INR 1.18 (0.83-1.09) H 10/14/19 23:27 Assessment/Plan Problem List - Problems (1) Cholecystitis Code(s): K81.9 - CHOLECYSTITIS, UNSPECIFIED (2) History of coronary artery stent placement Code(s): Z95.5 - PRESENCE OF CORONARY ANGIOPLASTY IMPLANT AND GRAFT (3) Morbid obesity Code(s): E66.01 - MORBID (SEVERE) OBESITY DUE TO EXCESS CALORIES cbd dilation plan continue zosyn wbc has increased awaiting plan
[2019-10-16 12:34] LABS: POTASSIUM 3.2 mmol/L (3.5-5.1)
[2019-10-16 12:39] LABS: ALBUMIN 2.7 g/dl (3.4-5.0); BLOOD UREA NITROGEN 12.7 mg/dL (7-18); CALCIUM 8.2 mg/dL (8.5-10.1); CREATININE 0.8 mg/dL (0.55-1.3)
[2019-10-16 12:40] LABS: BILIRUBIN,TOTAL 1.4 mg/dL (0.2-1); TOT PROT 6.2 g/dl (6.4-8.2)
[2019-10-16] MEDS ORDERED: PROPOFOL 20 ML ONE ×3 (12:58→14:10)
[2019-10-16] MEDS ORDERED: fentaNYL CITRATE 250 MCG/5 ML VIAL ONE (12:58)
[2019-10-16] MEDS ORDERED: LIDOCAINE HCL/PF 2% SDV 5ML VIAL ONE (12:58)
[2019-10-16] MEDS ORDERED: DEXAMETHASONE SOD PHOSPHATE 4 MG/1 ML VIAL ONE (12:58)
[2019-10-16] MEDS ORDERED: MIDAZOLAM HCL 2 MG/2 ML SINGLE DOSE VIAL ONE ×2 (12:58→13:17)
[2019-10-16] MEDS ORDERED: SUCCINYLCHOLINE CHLORIDE 200 MG/10 ML SYRINGE ONE (12:58)
[2019-10-16] MEDS ORDERED: EPHEDRINE SULFATE/0.9% NACL/PF 50 MG/10 ML SYRINGE NR ONE (13:02)
[2019-10-16] MEDS ORDERED: ROCURONIUM BROMIDE 100 MG/10 ML VIAL ONE (13:02)
[2019-10-16] MEDS ORDERED: ONDANSETRON 4 MG/2 ML VIAL IVPUSH PRN ×3 (13:11→15:39)
[2019-10-16] MEDS ORDERED: HYDROmorphone HCl 2 MG/ML VIAL IVPUSH PRN ×4 (13:12→15:39)
[2019-10-16] MEDS ORDERED: LACTATED RINGERS SOLUTION 1,000 ML IV SCH (13:15)
[2019-10-16] MEDS ORDERED: ACETAMINOPHEN INJECTION 100 ML IVPB ONE (13:17)
[2019-10-16] MEDS ORDERED: oxyCODONE HCL 5 MG TABLET PO PRN (13:34)
[2019-10-16] MEDS ORDERED: morphine SULFATE 4 MG/ML VIAL IVPB PRN ×2 (13:34→15:39)
--- NOTE | 2019-10-16 13:36 | OP ---
Operative Note - Note: Operative Date: 10/16/19 Pre-Operative Diagnosis: acute cholecystitis Operation: laparoscopic cholecystectomy, lavage Findings: gangrenous cholecystitis with phlegmon Post-Operative Diagnosis: Same as Pre-op Surgeon: Isiah Paredes Manager Local: Sharon Perdomo Anesthesiologist/SHRINK PIT OPERATOR: Dayana Burgess Anesthesia: General Specimens Removed: gb Estimated Blood Loss (mls): 30 Drains & Tubes with Location: ophelia gb fossa Operative Report Dictated: Yes
[2019-10-16] MEDS ORDERED: GLYCOPYRROLATE 0.2 MG/1 ML VIAL ONE (14:05)
[2019-10-16] MEDS ORDERED: NEOSTIGMINE METHYLSULFATE 0.5 MG/ML - 10 ML MDV ONE (14:05)
--- NOTE | 2019-10-16 14:11 | CONS ---
DATE OF CONSULTATION: 10/16/2019 REASON FOR CONSULT: Acute cholecystitis, cholelithiasis. This is an emergency room consultation. REQUESTING: Emergency room physician. BRIEF HISTORY: This is a 64-year-old male with multiple medical problems who had been having some mild right upper quadrant pain. He 4 days ago underwent a colonoscopy and upper endoscopy. He felt better after the procedure, which a biopsy was done in his rectum, but nothing done in the transverse colon. Then 2 days later he developed right upper quadrant abdominal pain after eating a greasy meal. The pain was persistent and severe. He came into the emergency room where he was diagnosed with CAT scan and ultrasound with likely acute cholecystitis. He was noted to have a markedly elevated white blood cell count, but he had no significant fever. He was started on Zosyn antibiotic. Because of a history of a cardiac stent, plans were being made for surgery, but first he required cardiology clearance. Then he underwent COVID testing to ensure that he would be a safe candidate for surgery. If the COVID testing was positive, he would have been referred for a percutaneous drainage. After COVID testing was done and cardiology optimization, he then developed hypokalemia which required correction, and at this point now he is optimized for surgery. He denies nausea or vomiting. PAST MEDICAL HISTORY: Significant for coronary artery disease, hypertension, hyperlipidemia, and morbid obesity. PAST SURGICAL HISTORY: Includes an appendectomy done open and the previously mentioned upper endoscopy and colonoscopy. Those were being done preoperative for planned bariatric surgery. SOCIAL HISTORY: Significant for quitting tobacco 19 years ago. MEDICATIONS: Home medications include aspirin, hydrochlorothiazide, lisinopril, Zocor, potassium, and Prilosec. FAMILY HISTORY: Noncontributory. REVIEW OF SYSTEMS: General: Denies fatigue or malaise. Cardiac: Denies chest pain or palpitations. Respiratory: No shortness of breath or wheeze. Gastrointestinal: No nausea, no vomiting. Admits to severe right upper quadrant pain. He states he has had this in the past. Genitourinary: Denies dysuria. Musculoskeletal: Denies joint pain. Psychiatric: Denies hearing voices. PHYSICAL EXAMINATION: General: This is a morbidly obese 64-year-old male in no distress. Vital Signs: He is afebrile. His vital signs are stable. His heart rate is 92. His blood pressure is 140/90. His respiratory rate is 18. HEENT: His head is normocephalic. His sclerae are anicteric. Neck: Supple. Chest: Clear. Abdomen: Soft. It is distended. There is a ventral hernia in the central portion of his abdomen. He has a McBurney incision. He has moderate tenderness in the right upper quadrant. There is rebound, but there is no guarding. Extremities: His extremities have edema. LABORATORY: His white blood cell count is 25,000, which is up from the original 15,000. There is a shift. His chemistries show a hypokalemia, with potassium now that is 3.2. It was as low as 2.9. His bilirubin is 1.4. His AST is 112. His ALT is 187. His alkaline phosphatase is normal. IMAGING: On review of his imaging, he has a CAT scan of his abdomen and pelvis which shows a distended gallbladder without obvious stones. There are inflammatory changes and trace free fluid. The radiologist believes this suggests acute cholecystitis. There is also thickening of the 2nd portion of the duodenum with a mild ileus which they feel is secondary to gallbladder inflammation. Patient also underwent an ultrasound of his gallbladder that confirmed sludge, a distended gallbladder 9 cm in length, and the bile duct was noted to be dilated at 8 mm, which 6 mm would be expected for his age group. The patient was admitted. He was started on Zosyn antibiotic. Despite antibiotic, his pain has not resolved, and his white blood cell count has increased. ASSESSMENT: This is a 64-year-old male who presents with right upper quadrant pain, right upper quadrant tenderness, rebound in the right upper quadrant, leukocytosis, and CAT scan evidence of acute cholecystitis with an abnormal distended gallbladder and sludge on ultrasound. Clinically, this is acute cholecystitis. I suspect it may be ischemic or potentially gangrenous based on the rising white blood cell count. I have considered the possibility that this is secondary to his colonoscopy or upper extremity; however, there is not evidence to support that on the CAT scan, and there were no biopsies done in the transverse colon at the hepatic flexure. He did state he had some pain prior to the colonoscopy, so I suspect this is an acute on chronic cholecystitis. Patient has been optimized by the learning and development analyst, who states that he is optimized for general anesthesia. His potassium has been improved, and his COVID test is negative. At this point it is best to proceed with surgery, continue Zosyn antibiotic, continue n.p.o. I do note the dilated common bile duct; however, I do not suspect that he has choledocholithiasis. This is based on the fact that he has a normal alkaline phosphatase. He does have a mild elevation of his transaminases; however, this is expected in severe cholecystitis, and he has a mildly elevated bilirubin, which again could be secondary to his sepsis. I would expect significantly higher transaminases, bilirubin, alkaline phosphatase if this was indeed cholangitis from a blocked bile duct. Also, although 8 mm is technically dilated, at his age it is not impressive. Will proceed with surgery. Risks and benefits of surgery have been explained to the patient in detail. These are including but not limited to the possibility of conversion to open, the possibility of common bile duct injury, possibility of cystic duct stump leak, possible injury to viscera, possibility of worsening sepsis, possibility of blood loss requiring blood transfusion, possibility of future hernia, possibility of future obstruction, plus a multitude of medical risks including but not limited to cardiac, neurologic, pulmonary, and vascular complications, even . Patient also understands that the gallbladder may not be his true diagnosis, and he may require a different operation depending on what is found. Also, he has been tested negative for the COVID virus. He understands that if this was actually a false negative and he did indeed have it, that general anesthesia could lead to respiratory failure and thromboembolic complications, even if that was indeed a false negative test. Patient understands. He is agreeable to surgery. DO IRENE DALLAS/[id number]
--- NOTE | 2019-10-16 15:09 | SURG ---
Surgery Anesthesia Director Note Anesthesia Director: Sharon Perdomo PA-C Date of Service: 10/16/19 Diagnosis: acute cholecystitis Procedure: laparoscopic cholecystectomy, peritoneal lavage I was present for the entirety of the operative procedure. For further detail, please refer to operative report. Visit type - Case Type Case Type: ED Admission - Emergency Emergency Visit: Yes ED Registration Date: 10/15/19 Care time: The patient presented to the Emergency Department on the above date and was hospitalized for further evaluation of their emergent condition. - New patient This patient is new to me today: Yes Date on this admission: 10/16/19
--- NOTE | 2019-10-16 15:24 | OP ---
DATE OF OPERATION: 10/16/2019 PREOPERATIVE DIAGNOSIS: Acute cholecystitis, sepsis. POSTOPERATIVE DIAGNOSIS: Acute cholecystitis, sepsis. PROCEDURE: Laparoscopic cholecystectomy, lavage. SURGEON: Isiah Paredes DO SEISMOMETER OPERATOR: Sharon Perdomo PA-C ANESTHESIOLOGIST: Dayana Burgess MD INTRAOPERATIVE FINDINGS: A gangrenous gallbladder with a phlegmon. BLOOD LOSS: Approximately 30 mL SPECIMEN: Gallbladder. DRAINS: Lc-Morton drain in the gallbladder fossa. DISPOSITION: Recovery in stable condition. BRIEF HISTORY: This is a 64-year-old male who presented to [facility] with signs and symptoms of acute cholecystitis. He got cardiac optimization, potassium repletion and COVID testing. He presents now for cholecystectomy. PROCEDURE: The patient was placed in the supine position. After general anesthesia was initiated, the abdomen was prepped and draped in sterile fashion. The patient was already on Zosyn antibiotic. A transverse incision was made supraumbilical with scalpel. It was carried through the skin and subcutaneous tissue. Of note, the patient had a hernia below this incision which was not addressed at the time of surgery. The abdominal wall was lifted. Veress needle was inserted and pneumoperitoneum was created. An 11-mm trocar was placed followed by insertion of a 10-mm 0-degree laparoscope. An additional 11-mm trocar was placed subxiphoid and two 5-mm trocars were placed in the right upper quadrant. Attention was then turned toward the right upper quadrant. There was a large phlegmon consisting of omentum. This was peeled off of the liver exposing a gangrenous gallbladder. The gallbladder was decompressed using a Veress needle. There was purulent bile and sludge suctioned from it. The fundus was then lifted cephalad, the infundibulum retracted laterally. Visualization of the infundibulum was adequate with a 0-degree laparoscope. The peritoneal peel was dissected down exposing a generous cystic duct and a small cystic artery. Both were clipped and divided. The tissue did appear to be pale, but seemed to have adequate integrity. The gallbladder was then liberated from the liver bed using electrocautery. It was placed in a specimen bag, removed through the supraumbilical trocar site after mild fascial dilation and sent to Pathology marked as specimen. A vigorous lavage was done. All return was clear. Due to the gangrenous nature of the gallbladder with possible compromise of the cystic duct and due to the likely infection and sepsis, a Lc-Morton drain was left in the gallbladder fossa in the location of the phlegmon cavity where the gallbladder had been. This was brought out through the lateral trocar site, secured with a silk drain stitch. Trocars were then removed under direct visualization. No bleeding was noted. Pneumoperitoneum was released with a suction device. The fascia of the supraumbilical trocar site was closed with multiple interrupted 0 Vicryl sutures. The hernia below that was not addressed. The 3 remaining skin incisions were closed with Biosyn and Dermabond dressing was placed. Overall the patient tolerated the procedure well. There were no complications. Patient was to be sent back to the regular floor. He would continue on intravenous antibiotics for at least another 48 hours. He would require likely 1 week of antibiotic. He will attempt a full liquid diet and his Lc-Morton drain will remain in to ensure that there is no leakage of bile, no duct of Luschka and to remove any remaining possible infection. DO IRENE DALLAS/[id number] MTDD
[2019-10-16] MEDS ORDERED: HYDROmorphone HCl 2 MG/ML VIAL ONE (15:35)
[2019-10-16] MEDS: LACTATED RINGERS SOLUTION 1,000 ML IV SCH (17:41)
[2019-10-16] MEDS: ROSUVASTATIN CA 20 MG TABLET (FP) PO SCH (21:35)
[2019-10-16] MEDS: oxyCODONE HCL 5 MG TABLET PO PRN (21:35)
[2019-10-16] MEDS: ACETAMINOPHEN 325 MG TABLET (FP) PO PRN (21:36)
[2019-10-17] MEDS ORDERED: PIPERACILLIN/TAZOBACTAM 4.5 GM VIAL IVPB ONE ×3 (00:59→17:18)
[2019-10-17] MEDS ORDERED: DEXTROSE 5%-WATER 100 ML IVPB ONE ×3 (00:59→17:19)
[2019-10-17] MEDS: PIPERACILLIN/TAZOB 4.5 GM 4.5 GM in DEXTROSE 5%-WATER 100 ML IVPB SCH ×3 (01:05→17:21)
[2019-10-17] MEDS: oxyCODONE HCL 5 MG TABLET PO PRN ×2 (06:01→21:40)
[2019-10-17] MEDS: LACTATED RINGERS SOLUTION 1,000 ML IV SCH (06:01)
[2019-10-17] MEDS: ACETAMINOPHEN 325 MG TABLET (FP) PO PRN ×2 (06:02→21:36)
[2019-10-17 07:39] LABS: EOS % 0.1 % (0-4.5); HEMATOCRIT 36.4 % (35.4-49); LYMPH % 5.3 % (8-40); MCH 28.9 pg (25.7-33.7); MCHC 32.9 g/dl (32.0-35.9); MEAN CELL VOLUME 87.7 fl (80-96); MEAN PLT VOLUME 9.2 fl (7.5-11.1); MONO % 7.2 % (3.8-10.2); NEUT % 87.4 % (42.8-82.8); PLATELET COUNT 224 K/MM3 (134-434); RBC 4.15 M/mm3 (4.00-5.60); WHITE BLOOD COUNT 14.7 K/mm3 (4.0-10.0)
[2019-10-17 08:03] LABS: BLOOD UREA NITROGEN 23.2 mg/dL (7-18); CALCIUM 8.3 mg/dL (8.5-10.1); CREATININE 0.9 mg/dL (0.55-1.3); POTASSIUM 3.3 mmol/L (3.5-5.1)
[2019-10-17] MEDS: LISINOPRIL 5 MG TABLET (FP) PO SCH (09:47)
[2019-10-17] MEDS: ENOXAPARIN NA (PORCINE) 40 MG/0.4 ML DISP.SYRIN SQ SCH (09:47)
[2019-10-17] MEDS: POTASSIUM CHLORIDE TABS 10 MEQ TABLET.ER (FP) PO SCH (09:47)
[2019-10-17] MEDS ORDERED: PANTOPRAZOLE SODIUM 40 MG VIAL IVPUSH SCH (10:00)
[2019-10-17] MEDS ORDERED: ENOXAPARIN NA (PORCINE) 40 MG/0.4 ML DISP.SYRIN SQ SCH (10:00)
[2019-10-17] MEDS ORDERED: ASPIRIN COATED 81 MG TABLET.EC PO SCH (10:00)
--- NOTE | 2019-10-17 10:06 | PN ---
Progress Note (short form) - Note Progress Note: surgery pod#1- pt afebrile with wbc improving. hgb stable. tolerating full liquids. demanding solid food. ophelia sero-sanguinous plan- gangrenous cholecystitis. cont iv abx until wbc wnl. will likely need additional augmentin at home. stop ivf. cont ophelia
[2019-10-17] MEDS: POTASSIUM CHLORIDE TABS 20 MEQ TABLET.ER (FP) PO SCH ×2 (10:30→15:30)
--- NOTE | 2019-10-17 12:20 | PN ---
Progress Note, Physician History of Present Illness: stable no complaints or - Current Medication List Current Medications: Active Medications Acetaminophen (Tylenol -) 650 mg PO Q6H PRN PRN Reason: pain 1-3 Last Admin: 10/17/19 06:02 Dose: 650 mg Documented by: Enoxaparin Sodium (Lovenox -) 40 mg SQ DAILY [facility] Last Admin: 10/17/19 09:47 Dose: 40 mg Documented by: Piperacillin Sod/Tazobactam (Sod 4.5 gm/ Dextrose) 100 mls @ 200 mls/hr IVPB Q8H-IV MALIK; Protocol Last Admin: 10/17/19 09:46 Dose: 200 mls/hr Documented by: Lisinopril (Prinivil) 2.5 mg PO DAILY [facility] Last Admin: 10/17/19 09:47 Dose: 2.5 mg Documented by: Morphine Sulfate (Morphine Sulfate) 8 mg IVPB Q3H PRN PRN Reason: PAIN LEVEL 7 - 10 Ondansetron HCl (Zofran Injection) 4 mg IVPUSH Q6H PRN PRN Reason: NAUSEA Oxycodone HCl (Roxicodone -) 7.5 mg PO Q4H PRN PRN Reason: PAIN LEVEL 4 - 6 Last Admin: 10/17/19 06:01 Dose: 7.5 mg Documented by: Pantoprazole Sodium (Protonix -) 40 mg PO DAILY [facility] Potassium Chloride (K-Dur -) 10 meq PO DAILY [facility] Last Admin: 10/17/19 09:47 Dose: 10 meq Documented by: Potassium Chloride (K-Dur -) 40 meq PO Q4H [facility] Stop: 10/17/19 14:16 Last Admin: 10/17/19 10:30 Dose: 40 meq Documented by: Potassium Chloride (Potassium Chloride Oral Liquid) 20 meq PO ONCE ONE Stop: 10/17/19 12:31 Rosuvastatin Calcium (Crestor -) 20 mg PO HS [facility] Last Admin: 10/16/19 21:35 Dose: 20 mg Documented by: - Objective Vital Signs: Vital Signs Temperature 98 F 10/17/19 09:07 Pulse Rate 70 10/17/19 09:07 Respiratory Rate 18 10/17/19 09:07 Blood Pressure 118/59 L 10/17/19 09:07 O2 Sat by Pulse Oximetry (%) 93 L 10/17/19 09:07 Constitutional: Yes: No Distress, Calm Cardiovascular: Yes: S1, S2 Respiratory: Yes: Regular, CTA Bilaterally Gastrointestinal: Yes: Soft, Hypoactive Bowel Sounds Musculoskeletal: Yes: WNL Extremities: Yes: WNL Neurological: Yes: Alert, Oriented Psychiatric: Yes: Alert, Oriented Labs: CBC, BMP 10/17/19 06:52 10/17/19 06:52 INR, PTT INR 1.18 (0.83-1.09) H 10/14/19 23:27 Assessment/Plan Problem List - Problems (1) Cholecystitis Code(s): K81.9 - CHOLECYSTITIS, UNSPECIFIED (2) History of coronary artery stent placement Code(s): Z95.5 - PRESENCE OF CORONARY ANGIOPLASTY IMPLANT AND GRAFT (3) Morbid obesity Code(s): E66.01 - MORBID (SEVERE) OBESITY DUE TO EXCESS CALORIES cbd dilation plan continue zosyn for or rest as per the team
[2019-10-17] MEDS ORDERED: POTASSIUM CHLORIDE ORAL LIQUID 20 MEQ/15 ML PO ONE (12:30)
--- NOTE | 2019-10-17 13:15 | PN ---
Progress Note, Physician History of Present Illness: less pain vss no temp no bm but no food x3days ?wbc less kcl treted chk labs in am diet advanced reg by sx - Current Medication List Current Medications: Active Medications Acetaminophen (Tylenol -) 650 mg PO Q6H PRN PRN Reason: pain 1-3 Last Admin: 10/17/19 06:02 Dose: 650 mg Documented by: Enoxaparin Sodium (Lovenox -) 40 mg SQ DAILY [facility] Last Admin: 10/17/19 09:47 Dose: 40 mg Documented by: Piperacillin Sod/Tazobactam (Sod 4.5 gm/ Dextrose) 100 mls @ 200 mls/hr IVPB Q8H-IV MALIK; Protocol Last Admin: 10/17/19 09:46 Dose: 200 mls/hr Documented by: Lisinopril (Prinivil) 2.5 mg PO DAILY [facility] Last Admin: 10/17/19 09:47 Dose: 2.5 mg Documented by: Morphine Sulfate (Morphine Sulfate) 8 mg IVPB Q3H PRN PRN Reason: PAIN LEVEL 7 - 10 Ondansetron HCl (Zofran Injection) 4 mg IVPUSH Q6H PRN PRN Reason: NAUSEA Oxycodone HCl (Roxicodone -) 7.5 mg PO Q4H PRN PRN Reason: PAIN LEVEL 4 - 6 Last Admin: 10/17/19 06:01 Dose: 7.5 mg Documented by: Pantoprazole Sodium (Protonix -) 40 mg PO DAILY [facility] Potassium Chloride (K-Dur -) 10 meq PO DAILY [facility] Last Admin: 10/17/19 09:47 Dose: 10 meq Documented by: Potassium Chloride (K-Dur -) 40 meq PO Q4H [facility] Stop: 10/17/19 14:16 Last Admin: 10/17/19 10:30 Dose: 40 meq Documented by: Rosuvastatin Calcium (Crestor -) 20 mg PO HS [facility] Last Admin: 10/16/19 21:35 Dose: 20 mg Documented by: - Objective Vital Signs: Vital Signs Temperature 98 F 10/17/19 09:07 Pulse Rate 70 10/17/19 09:07 Respiratory Rate 18 10/17/19 09:07 Blood Pressure 118/59 L 10/17/19 09:07 O2 Sat by Pulse Oximetry (%) 93 L 10/17/19 09:07 Labs: CBC, BMP 10/17/19 06:52 10/17/19 06:52 INR, PTT INR 1.18 (0.83-1.09) H 10/14/19 23:27
[2019-10-17] MEDS: ROSUVASTATIN CA 20 MG TABLET (FP) PO SCH (21:36)
[2019-10-18] MEDS ORDERED: DEXTROSE 5%-WATER 100 ML IVPB ONE ×2 (02:30→09:26)
[2019-10-18] MEDS ORDERED: PIPERACILLIN/TAZOBACTAM 4.5 GM VIAL IVPB ONE ×2 (02:30→09:26)
[2019-10-18] MEDS: PIPERACILLIN/TAZOB 4.5 GM 4.5 GM in DEXTROSE 5%-WATER 100 ML IVPB SCH ×2 (02:34→09:54)
[2019-10-18 08:16] LABS: BASO % 0.4 % (0-2.0); EOS % 1.9 % (0-4.5); HEMATOCRIT 39.6 % (35.4-49); HEMOGLOBIN 12.8 GM/dL (11.7-16.9); LYMPH % 10.9 % (8-40); MCH 28.9 pg (25.7-33.7); MCHC 32.3 g/dl (32.0-35.9); MEAN CELL VOLUME 89.6 fl (80-96); MEAN PLT VOLUME 9.4 fl (7.5-11.1); MONO % 8.3 % (3.8-10.2); NEUT % 78.5 % (42.8-82.8); PLATELET COUNT 278 K/MM3 (134-434); RBC 4.42 M/mm3 (4.00-5.60); RDW 15.5 % (11.9-15.9); WHITE BLOOD COUNT 11.3 K/mm3 (4.0-10.0)
[2019-10-18 08:21] LABS: POTASSIUM 3.7 mmol/L (3.5-5.1)
[2019-10-18 08:33] LABS: BLOOD UREA NITROGEN 18.8 mg/dL (7-18); CALCIUM 8.5 mg/dL (8.5-10.1); CREATININE 0.9 mg/dL (0.55-1.3)
[2019-10-18] MEDS: ENOXAPARIN NA (PORCINE) 40 MG/0.4 ML DISP.SYRIN SQ SCH (09:55)
[2019-10-18] MEDS: LISINOPRIL 5 MG TABLET (FP) PO SCH (09:55)
[2019-10-18] MEDS: POTASSIUM CHLORIDE TABS 10 MEQ TABLET.ER (FP) PO SCH (09:56)
[2019-10-18] MEDS ORDERED: PANTOPRAZOLE 40 MG TABLET PO SCH (10:00)
--- NOTE | 2019-10-18 10:10 | DS ---
Physical Examination Vital Signs: Vital Signs Temperature 98.2 F 10/18/19 05:00 Pulse Rate 70 10/18/19 05:00 Respiratory Rate 20 10/18/19 05:00 Blood Pressure 115/53 L 10/18/19 05:00 O2 Sat by Pulse Oximetry (%) 95 10/18/19 05:00 Constitutional: Yes: Well Nourished Eyes: Yes: WNL HENT: Yes: WNL Neck: Yes: WNL Cardiovascular: Yes: WNL Respiratory: Yes: WNL Gastrointestinal: Yes: Other (drain to be removed prior to d/c) Renal/: Yes: WNL Breast(s): Yes: WNL Musculoskeletal: Yes: WNL Extremities: Yes: WNL Edema: No Peripheral Pulses WNL: Yes Integumentary: Yes: WNL Wound/Incision: Yes: Clean/Dry, Excoriated ...Motor Strength: WNL Psychiatric: Yes: WNL Labs: CBC, BMP 10/18/19 07:03 10/18/19 07:03 Discharge Summary Problems reviewed: Yes Reason For Visit: RIGHT UPPER QUADRANT ABDOMINAL PAIN Current Active Problems Cholecystitis (Acute) Gallbladder dilatation (Acute) History of coronary artery stent placement (Acute) Morbid obesity (Acute) RUQ pain (Acute) Condition: Stable - Instructions Diet, Activity, Other Instructions: Janelle VALENTE, Post Operative Instructions Physical activity Resume your normal everyday activity as tolerated no heavy lifting or exercise until seen by your surgeon. You may walk unlimited amounts of and climb stairs. You may resume driving the car when you feel safe and comfortable behind the whe el. Wound care If you have a bandage, leave it on, and keep dry for 48 - 72 hours. After that time discard the outer bandage. If there are tapes on the skin under the outer bandage, leave them in place. They will peel off in the next 7 to 10 days. Do Not peel them off. You may shower 2 days after surgery. If there are tapes present on the skin, they can get wet. Diet There are no dietary restrictions. Eat healthy, high-fiber foods. Drink 6 to 8 glasses of liquid each day. This will assist in keeping your bowels are regular. Pain management You may take Tylenol or acetaminophen or Ibuprofen (for example, Motrin, Advil etc.) Any pain prescription medication ordered should be taken as prescribed for moderate to severe pain. Call Dr. Paredes for any of the following: Severe pain not relieved by medication Fever of 101 or higher Excessive bleeding or drainage on dressing Inability to urinate Call the office for a post operative appointment in 7 - 10 days. Referrals: Lizandro Dubois MD [Primary Care Provider] - Isiah Paredes MD [Staff Physician] - Disposition: HOME - Home Medications Comprehensive Discharge Medication List: Ambulatory Orders Aspirin [Aspirin EC] 81 mg PO DAILY 05/16/19 Chlorthalidone 50 mg PO DAILY 05/16/19 Lisinopril [Zestril] 2.5 mg PO DAILY 05/16/19 Omeprazole 20 mg PO DAILY 05/16/19 Potassium Chloride [Klor-Con M10] 10 meq PO DAILY 05/16/19 Simvastatin [Zocor] 20 mg PO DAILY 05/16/19 Amoxicillin/Potassium Clav [Augmentin 875-125 Tablet] 1 each PO BID #10 tablet 10/18/19 Lisinopril [Prinivil] 2.5 mg PO DAILY tablet 10/18/19 Potassium Chloride [K-Dur -] 10 meq PO DAILY tablet.er 10/18/19 Rosuvastatin [Crestor -] 20 mg PO HS tablet 10/18/19
[2019-10-18 10:17] VITALS: BP 142/89; PULSE 86; TEMP 98.4
--- NOTE | 2019-10-18 11:12 | PN ---
Progress Note (short form) - Note Progress Note: surgery: Pt without nausea and tolerated a diet. ROGER removed with the tip intact GEN: A&0x3, NAD ABD: soft, non-distended, inc c/d/i A/P: 64 yo male s/p lap mackenzie, POD#2 stable, plan for discharge today to home by the medical service D/w Dr. Romano
--- NOTE | 2019-10-18 11:16 | PN ---
Progress Note, Physician History of Present Illness: stable drain removed doing well - Current Medication List Current Medications: Active Medications Acetaminophen (Tylenol -) 650 mg PO Q6H PRN PRN Reason: pain 1-3 Last Admin: 10/17/19 21:36 Dose: 650 mg Documented by: Enoxaparin Sodium (Lovenox -) 40 mg SQ DAILY [facility] Last Admin: 10/18/19 09:55 Dose: 40 mg Documented by: Lisinopril (Prinivil) 2.5 mg PO DAILY [facility] Last Admin: 10/18/19 09:55 Dose: 2.5 mg Documented by: Rosuvastatin Calcium (Crestor -) 20 mg PO HS [facility] Last Admin: 10/17/19 21:36 Dose: 20 mg Documented by: - Objective Vital Signs: Vital Signs Temperature 98.4 F 10/18/19 09:00 Pulse Rate 86 10/18/19 09:00 Respiratory Rate 20 10/18/19 09:00 Blood Pressure 142/89 10/18/19 09:00 O2 Sat by Pulse Oximetry (%) 96 10/18/19 09:00 Constitutional: Yes: No Distress, Calm Cardiovascular: Yes: S1, S2 Respiratory: Yes: Regular, CTA Bilaterally Gastrointestinal: Yes: Normal Bowel Sounds, Soft Musculoskeletal: Yes: WNL Extremities: Yes: WNL Neurological: Yes: Alert, Oriented Psychiatric: Yes: Alert, Oriented Labs: CBC, BMP 10/18/19 07:03 10/18/19 07:03 INR, PTT INR 1.18 (0.83-1.09) H 10/14/19 23:27 Assessment/Plan Problem List - Problems (1) Cholecystitis Code(s): K81.9 - CHOLECYSTITIS, UNSPECIFIED (2) History of coronary artery stent placement Code(s): Z95.5 - PRESENCE OF CORONARY ANGIOPLASTY IMPLANT AND GRAFT (3) Morbid obesity Code(s): E66.01 - MORBID (SEVERE) OBESITY DUE TO EXCESS CALORIES cbd dilation plan can change to oral doing well
--- NOTE | 2019-10-18 16:12 | PATH ---
Surgical Pathology Report Patient Name: DEYSI VALENTE Med. Rec. #: [id number] /Age/Gender: 1955 (Age: 64) / M Account: [id number] Location: [facility] MED/SURG Taken: 10/16/2019 Received: 10/17/2019 Reported: 10/18/2019 Physicians: Gume Pompa M.D. Specimen(s) Received GALLBLADDER Clinical History Acute abdominal pain, rule out gangrenous cholecystitis Final Diagnosis GALLBLADDER, LAPAROSCOPIC CHOLECYSTECTOMY: ACUTE GANGRENOUS CHOLECYSTITIS. Electronically Signed Jory Ruiz M.D. Gross Description Received in formalin labeled "gallbladder," is a 9.3 x 3.0 x 2.0 cm markedly torn and disrupted gallbladder with a 0.1 cm in length portion of cystic duct attached. The outer surface is wallace brown with multifocal defects. There are no choleliths and no bile present within the lumen. The mucosa is wallace-brown and necrotic. The wall of the gallbladder ranges from 0.1-0.4 cm in thickness. B[place] Twirler sections are submitted in one cassette. /10/17/2019 saudi10/17/2019
== END 2019-10-18 15:04 | disposition home or self-care (01) | DRG 419 ==
LOC: JER 20:40 → JERBED 10-15 02:32 → J7W 10-15 04:06 → OBSVTOIN 10-15 07:12 → J7W 10-16 18:19
PROVIDERS: ADMIT Family Medicine; ATTEND Family Medicine
PROC: 3E1M38Z Irrigation of Peritoneal Cavity using Irrigating Substance, Percutaneous Approach (ICD-10-PCS; 2019-10-16)
PROC: 0FT44ZZ Resection of Gallbladder, Percutaneous Endoscopic Approach (ICD-10-PCS; principal; 2019-10-16 11:30)
DX: K81.0 Acute cholecystitis (principal); K82.A1 Gangrene of gallbladder in cholecystitis; I10 Essential (primary) hypertension; E78.5 Hyperlipidemia, unspecified; Z87.891 Personal history of nicotine dependence; I25.10 Atherosclerotic heart disease of native coronary artery without angina pectoris; E66.01 Morbid (severe) obesity due to excess calories; Z68.36 Body mass index [BMI] 36.0-36.9, adult
CPT/HCPCS: 36415; 74019-TC-FY; 74177-TC; 76705-TC; 80048; 80053; 83690; 85025; 85610; 85730; 86850; 86900; 86901; 88304-TC; 93005; 93010; 94760; 99285-25; G0378; J0131; Q9967; U0003